=== PATIENT | male | born 1980 | race Caucasian/White ===

== ENCOUNTER 2020-03-01 10:32 | Emergency (ER) | payer BC, OTHER ==
--- NOTE | 2020-03-01 11:09 | EDM.PDOC ---
ED HPI GENERAL MEDICAL PROBLEM - General Chief Complaint: Chest Pain Stated Complaint: BROKEN RIB Time Seen by Provider: 03/01/20 10:50 Source of Information: Reports: Patient, Family History Limitations: Reports: No Limitations - History of Present Illness INITIAL COMMENTS - FREE TEXT/NARRATIVE: 39-year-old male stumbled off of a tractor last evening striking the left anterior chest and lateral chest on the edge of the machine. He felt "okay" at the time, but this morning he has much more pain and is having difficulty breathing with pleuritic pain. He does not feel short of breath. He has no other injury except for some superficial abrasions on his left hand. No abdominal pain, neck pain or head injury. Onset: Sudden Duration: Hour(s): (12 hours ago) Location: Reports: Chest Worsens with: Reports: Other (breathing), Movement Associated Symptoms: Reports: Other (Significant pleuritic chest pain) Left Chest Pain Score (Numeric/FACES): 5 - Related Data Allergies Allergy/AdvReac Type Severity Reaction Status Date / Time No Known Allergies Allergy Verified 03/01/20 10:49 Home Meds: Home Meds NK [No Known Home Meds] 03/01/20 [History] Past Medical History HEENT History: Reports: Impaired Vision Musculoskeletal History: Reports: Back Pain, Chronic, Fracture Social & Family History - Tobacco Use Smoking Status *Q: Current Every Day Smoker Years of Tobacco use: 20 Packs/Tins Daily: 0.2 - Caffeine Use Caffeine Use: Reports: Coffee, Soda - Recreational Drug Use Recreational Drug Use: No ED ROS GENERAL - Review of Systems Review Of Systems: See Below Constitutional: Denies: Fever, Chills Respiratory: Reports: Pleuritic Chest Pain. Denies: Shortness of Breath Cardiovascular: Reports: Chest Pain (Left lateral and left posterior chest) GI/Abdominal: Denies: Abdominal Pain, Nausea, Vomiting Skin: Reports: Other (Abrasion on his hand, no bruising of the chest wall) Neurological: Reports: No Symptoms ED EXAM, GENERAL - Physical Exam Exam: See Below Exam Limited By: No Limitations General Appearance: Alert, Mild Distress (Looks very uncomfortable, ambulating without difficulty) Eye Exam: Bilateral Eye: Normal Inspection Head: Atraumatic Neck: Supple, Non-Tender Respiratory/Chest: No Respiratory Distress, Lungs Clear, Other (Severe palpation tenderness to the anterior left chest wall in the parasternal area, no crepitus) Cardiovascular: Regular Rate, Rhythm GI/Abdominal: Soft, Non-Tender Neurological: Alert, Oriented Skin Exam: Warm, Dry, Other (Superficial abrasion on the dorsal aspect of the left hand) Course - Vital Signs Last Recorded V/S: Last Vital Signs Temp 98.8 F 03/01/20 10:52 Pulse 88 03/01/20 12:14 Resp 16 03/01/20 12:14 BP 137/77 03/01/20 12:14 Pulse Ox 96 03/01/20 12:14 - Orders/Labs/Meds Meds: Medications Discontinued Medications Generic Name Dose Route Start Last Admin Trade Name Freq PRN Reason Stop Dose Admin Hydromorphone HCl 1 mg 03/01/20 11:41 03/01/20 11:49 Dilaudid IM 03/01/20 11:42 1 mg ONETIME ONE Administration - Re-Assessments/Exams Free Text/Narrative Re-Assessment/Exam: 03/01/20 11:[address] of the chest without contrast was obtained. 03/01/20 11:43 CT looks normal, waiting for the formal read. Patient was given 1 mg of IM Dilaudid. 03/01/20 12:33 Impression: No traumatic injury to the chest. Patient had some improvement with the Dilaudid. Above findings were discussed with the patient, I encouraged him to use an anti-inflammatory on a regular basis, gave him 10 hydrocodone for extra pain control and is going to increase activity as tolerated. Off work for 2 days, recheck in 48 to 72 hours if unable to go back to work. Departure - Departure Time of Disposition: 12:56 Disposition: Home, Self-Care 01 Clinical Impression: Contusion, chest wall Qualifiers: Encounter type: initial encounter Laterality: left Qualified Code(s): S20.212A - Contusion of left front wall of thorax, initial encounter - Discharge Information Instructions: Contusion, [id number] Referrals: PCP,None [Primary Care Provider] - Forms: ED Department Discharge Care Plan Goals: Take a regular dose of ibuprofen or naproxen, add stronger pain medication if needed as directed. Increase activity as tolerated and recheck in 2 to 3 days if not improving satisfactorily. Return sooner if worsening such as inability to breathe or fever. Sepsis Event Note (ED) - Evaluation Sepsis Screening Result: No Definite Risk - Focused Exam Vital Signs: Vital Signs Temp Pulse Resp BP Pulse Ox 03/01/20 12:14 88 16 137/77 96 03/01/20 10:52 98.8 F 80 20 146/57 H 96
[2020-03-01] MEDS ORDERED: HYDROmorphone 1 MG/ML Syringe IM ONE (11:41)
--- NOTE | 2020-03-01 12:34 | CRLCT ---
Indication: LEFT CHEST TRAUMA YESTERDAY Technique: Noncontrast CT chest Please note that all CT scans at this facility use dose modulation, iterative reconstruction, and/or weight-based dosing when appropriate to reduce radiation dose to as low as reasonably achievable. Comparison: No comparison Findings: No fracture. Left-sided ribs are intact. Intact scapula. No extrapleural hematoma or pneumothorax. Mediastinum normal without adenopathy. Normal upper abdomen. Mild dependent atelectasis bilaterally. No pleural effusion. Impression: No traumatic injury to the chest. Please note that all CT scans at this facility use dose modulation, iterative reconstruction, and/or weight-based dosing when appropriate to reduce radiation dose to as low as reasonably achievable. Dictated by Harry Luz MD @ Mar 01 2020 12:12PM Signed by Dr. Harry Luz @ Mar 01 2020 12:31PM
== END 2020-03-01 12:56 | disposition home or self-care (01) ==
LOC: JP.ED 10:32
DX: S20.212A Contusion of left front wall of thorax, initial encounter (principal); S60.512A Abrasion of left hand, initial encounter; F17.210 Nicotine dependence, cigarettes, uncomplicated; W20.8XXA Other cause of strike by thrown, projected or falling object, initial encounter
CPT/HCPCS: 71250; 96372; 99284; J1170

== ENCOUNTER 2022-03-03 14:39 | Emergency (ER) | payer OTHER, BC ==
[2022-03-03] MEDS ORDERED: LORazepam 1 MG Tab PO ONE (15:34)
[2022-03-03] MEDS ORDERED: HYDROmorphone 1 MG/ML Syringe IM ONE (15:34)
== END 2022-03-03 17:31 | disposition home or self-care (01) ==
LOC: JP.ED 14:39
DX: M54.50 Low back pain, unspecified (principal); F17.210 Nicotine dependence, cigarettes, uncomplicated
CPT/HCPCS: 96372; 99283; A9270; J1170